=== PATIENT | male | born 1945 ===

== ENCOUNTER 2024-11-29 12:15 | Inpatient (IN) | payer OTHER ==
[~2024-11-29] VITALS: Ht 180.3 cm; Wt 72.6 kg
[2024-11-29 12:12] VITALS: BP 160/71
[~2024-11-29 12:15] MED LIST: ECOTRIN81 MG PO; METFORMIN HCL500 M3 PO
[2024-11-29 12:16] VITALS: BP 124/70
[2024-12-06] MEDS ORDERED: BUPIVACAINE HCL 30 ML VIAL IJ ONE (07:30)
[2024-12-06] MEDS ORDERED: METRONIDAZOLE/SODIUM CHLORIDE 500 MG/100 ML PIGGYBACK IV ONE (07:30)
[2024-12-06] MEDS ORDERED: CEFTRIAXONE SODIUM 2,000 MG VIAL IV ONE (07:30)
[2024-12-06] MEDS ORDERED: LIDOCAINE HCL 1%/EPINEPHRINE 20ML VIAL IJ ONE (07:30)
[2024-12-06] MEDS ORDERED: MORPHINE SULFATE 4 MG/ML VIAL IV ONE ×2 (10:55→11:25)
[2024-12-06] MEDS ORDERED: 0.9 % SODIUM CHLORIDE 1,000 ML IV SCH (11:00)
[2024-12-06] MEDS ORDERED: OxyCODONE HCL 5 MG TABLET (ROXICODONE) PO PRN (11:00)
[2024-12-06] MEDS ORDERED: ONDANSETRON HCL 2 MG/ML VIAL IV PRN (11:00)
[2024-12-06] MEDS ORDERED: MORPHINE SULFATE 4 MG/ML CARTRIDGE IV PRN (11:00)
[2024-12-06] MEDS ORDERED: DEXTROSE 50 % IN WATER 0.5 G/ML VIAL IV PRN (11:00)
[2024-12-06 12:29] LABS: BASO % 0.3 % (0.1-1.2); EOS # 0.00 (0.04-0.54); EOS % 0.0 % (0.7-7.0); LYMPH # 0.96 (1.18-3.74); LYMPH % 6.3 % (19.3-53.1); MEAN PLATELET VOLUME 11.20 fl (9.4-12.4); MONO # 0.81 (0.24-0.82); MONO % 5.3 % (4.7-12.5); NEUT # 13.48 (1.56-6.13); NEUT % 87.7 % (34.0-71.1); RED CELL DISTRIBUTION WIDTH 15.9 % (11.6-14.4)
[2024-12-06 12:45] VITALS: BP 160/71; O2SAT 96
[2024-12-06] MEDS ORDERED: HYOSCYAMINE SULFATE 0.125 MG TAB.SUBL SL SCH (13:00)
[2024-12-06 13:12] LABS: BUN CREA RATIO 26.0 (7.0-25.0); CREATININE SERUM 0.82 mg/dL (0.70-1.30); GFR 90.17; GLUCOSE FASTING 162.0 mg/dL (65-100); OSMOLALITY SERUM 290.0 MOSM/KG (275-295)
[2024-12-06] MEDS ORDERED: ACETAMINOPHEN 500 MG GEL..CAP PO SCH (14:00)
[2024-12-06 16:59] VITALS: BP 160/54; O2SAT 95
[2024-12-06] MEDS ORDERED: GABAPENTIN 300 MG CAPSULE PO SCH (17:00)
[2024-12-06] MEDS ORDERED: METRONIDAZOLE/SODIUM CHLORIDE 500 MG/100 ML PIGGYBACK IV SCH (17:00)
[2024-12-06] MEDS ORDERED: CELECOXIB 200 MG CAPSULE PO SCH (21:00)
[2024-12-06] MEDS ORDERED: FAMOTIDINE/PF 20 MG/2 ML VIAL IV PUSH SCH (21:00)
[2024-12-07 00:12] VITALS: BP 135/67; O2SAT 95
[2024-12-07 06:51] LABS: BASO % 0.3 % (0.1-1.2); EOS # 0.00 (0.04-0.54); EOS % 0.0 % (0.7-7.0); LYMPH # 1.88 (1.18-3.74); LYMPH % 16.7 % (19.3-53.1); MEAN PLATELET VOLUME 11.40 fl (9.4-12.4); MONO # 1.67 (0.24-0.82); NEUT # 7.66 (1.56-6.13); NEUT % 67.8 % (34.0-71.1); RED CELL DISTRIBUTION WIDTH 15.8 % (11.6-14.4)
[2024-12-07 07:10] LABS: MONO % 14.8 % (4.7-12.5)
[2024-12-07 07:16] LABS: BUN CREA RATIO 18.0 (7.0-25.0); CREATININE SERUM 0.95 mg/dL (0.70-1.30); GFR 76.09; GLUCOSE FASTING 128.0 mg/dL (65-100); OSMOLALITY SERUM 288.0 MOSM/KG (275-295)
[2024-12-07 08:00] VITALS: BP 146/64; O2SAT 95
[2024-12-07 16:00] VITALS: BP 112/66; O2SAT 97
[2024-12-07] MEDS ORDERED: ENOXAPARIN SODIUM 40 MG/0.4 ML SYRINGE SUBCUTANEO SCH (17:00)
[2024-12-07] MEDS ORDERED: SOD FERRIC GLUC COMPLX/SUCROSE 62.5 MG in 0.9 % SODIUM CHLORIDE 50 ML IV SCH (20:20)
[2024-12-08 00:48] VITALS: BP 137/77; O2SAT 99
[2024-12-08 08:00] VITALS: BP 145/74; O2SAT 100
[2024-12-08] MEDS ORDERED: ENOXAPARIN SODIUM 40 MG/0.4 ML SYRINGE SUBCUTANEO SCH (09:00)
[2024-12-08 16:00] VITALS: BP 152/74; O2SAT 98
[2024-12-09 01:36] VITALS: BP 139/69; O2SAT 98
[2024-12-09 08:00] VITALS: BP 159/78; O2SAT 98
[2024-12-09] MEDS ORDERED: PEPCID AC20 MG PO (12:12)
[2024-12-09] MEDS ORDERED: TRAM1TAB98 PO (12:12)
[2024-12-09] MEDS ORDERED: HYOSCYAMINE0.125 M1 SL (12:14)
== END 2024-12-09 13:47 | disposition home or self-care (01) | DRG 330 ==
LOC: SURH 12:15 → O/R 12-06 05:30 → SURH 12-06 05:30
PROVIDERS: ADMIT Surgery; ATTEND Surgery
PROC: 0DBP4ZZ Excision of Rectum, Percutaneous Endoscopic Approach (ICD-10-PCS; 2024-12-06)
PROC: 07BC4ZZ Excision of Pelvis Lymphatic, Percutaneous Endoscopic Approach (ICD-10-PCS; 2024-12-06)
PROC: 0DJD8ZZ Inspection of Lower Intestinal Tract, Via Natural or Artificial Opening Endoscopic (ICD-10-PCS; 2024-12-06)
PROC: 0DTN4ZZ Resection of Sigmoid Colon, Percutaneous Endoscopic Approach (ICD-10-PCS; principal; 2024-12-06 10:15)
DX: C18.7 Malignant neoplasm of sigmoid colon (principal); C18.6 Malignant neoplasm of descending colon; K66.0 Peritoneal adhesions (postprocedural) (postinfection); R59.0 Localized enlarged lymph nodes; D64.89 Other specified anemias; E11.9 Type 2 diabetes mellitus without complications; E78.5 Hyperlipidemia, unspecified; Z79.84 Long term (current) use of oral hypoglycemic drugs